=== PATIENT | male | born 1990 | race Caucasian/White ===

== ENCOUNTER 2017-12-15 04:45 | Inpatient (IN) | payer OTHER ==
[~2017-12-15] VITALS: Ht 177.8 cm; Wt 175.7 kg
[2017-12-15 05:30] LABS: BASO % 0.7 % (0.0-2.0); EOS # 0.2 (0.0-0.7); EOS % 3.7 % (0-4.0); GRAN # 2.3 (1.4-6.5); GRAN % 39.1 % (42.2-75.2); HEMOGLOBIN 15.1 g/dl (13.5-18.0); LYMPH # 2.7 (1.2-3.4); LYMPH % 46.1 % (20.0-51.0); MEAN CELL VOLUME 84 fl (80.0-100.0); MEAN CORPUSCULAR HEMOGLOBIN 30 pg (27.0-31.0); MEAN CORPUSCULAR HGB CONC 36 g/dl (33.0-37.0); MEAN PLATELET VOLUME 10.1 fl (7.4-10.4); MONO # 0.6 (0.1-0.6); MONO % 10.2 % (1.7-9.3); PLATELET COUNT 191 K/mm3 (130-400); RED BLOOD COUNT 5.02 M/mm3 (4.20-5.60); REDCELL DISTRIBUTION WIDTH-CV 12.8 % (11.5-14.5)
[2017-12-15 05:35] LABS: PROTHROMBIN TIME 10.9 SECONDS (9.7-12.8)
[2017-12-15 05:39] LABS: ALBUMIN 3.9 gm/dL (3.5-5.0); BILIRUBIN,TOTAL 0.5 mg/dL (0.0-1.0); CALCIUM 9.3 mg/dL (8.4-10.2); CREATININE, serum 0.9 mg/dL (0.66-1.25); POTASSIUM 3.6 mmol/L (3.4-5.0); TOTAL PROTEIN 7.5 gm/dL (6.4-8.2)
[2017-12-15 05:52] LABS: TROPONIN-I 0.049 ng/mL (0.000-0.034)
[2017-12-15] MEDS ORDERED: ZESTRIL40 MG PO (06:43)
[2017-12-15] MEDS ORDERED: ZYRTEC ALLERGY10 MG PO (06:44)
[2017-12-15] MEDS ORDERED: PEPTO BISMOL262 MG PO (06:44)
[2017-12-15 07:49] LABS: COLLECTION METHOD CLEAN CATCH
[2017-12-15 07:59] LABS: PH 6 (5-8); SQUAMOUS EPITHELIAL None Seen /hpf; URINE APPEARANCE Clear; URINE BACTERIA None Seen /hpf; URINE BILIRUBIN Negative (NEGATIVE); URINE BLOOD Negative (NEGATIVE); URINE COLOR Straw; URINE GLUCOSE Negative (NEGATIVE); URINE KETONE Negative (NEGATIVE); URINE LEUKOCYTE ESTERASE Negative (NEGATIVE); URINE NITRATE Negative (NEGATIVE); URINE PROTEIN(semi-quant) Negative (NEGATIVE); URINE RBC 0-2 /hpf; URINE UROBILINOGEN Negative (NEGATIVE)
[2017-12-15 10:21] VITALS: BP 146/80; PULSE 104; TEMP 98
[2017-12-15 11:06] VITALS: BP 146/80; PULSE 104; TEMP 98
[2017-12-15] MEDS ORDERED: PRILOTC PO (11:23)
[2017-12-15 16:52] VITALS: BP 142/90; PULSE 73; TEMP 98.2
[2017-12-15 19:46] VITALS: BP 146/74; PULSE 65; TEMP 98.3
[2017-12-16] VITALS (13 sets, daily range): BP systolic 115–148; BP diastolic 63–90; PULSE 52–79; TEMP 97.7–98.8
[2017-12-16 09:56] LABS: BASO % 0.7 % (0.0-2.0); EOS # 0.2 (0.0-0.7); EOS % 3.3 % (0-4.0); GRAN # 1.9 (1.4-6.5); GRAN % 42.3 % (42.2-75.2); HEMATOCRIT 41.6 % (42.0-52.0); HEMOGLOBIN 14.8 g/dl (13.5-18.0); LYMPH % 44.6 % (20.0-51.0); MEAN CELL VOLUME 86 fl (80.0-100.0); MEAN CORPUSCULAR HEMOGLOBIN 31 pg (27.0-31.0); MEAN CORPUSCULAR HGB CONC 36 g/dl (33.0-37.0); MEAN PLATELET VOLUME 10.3 fl (7.4-10.4); MONO # 0.4 (0.1-0.6); MONO % 9.1 % (1.7-9.3); PLATELET COUNT 193 K/mm3 (130-400); RED BLOOD COUNT 4.85 M/mm3 (4.20-5.60); REDCELL DISTRIBUTION WIDTH-CV 13.1 % (11.5-14.5)
[2017-12-16 10:37] LABS: THYROID STIMULATING HORMONE 1.89 uIU/mL (0.465-4.680)
[2017-12-17 00:04] VITALS: BP 146/74; PULSE 62; TEMP 97.8
[2017-12-17 03:19] VITALS: BP 143/75; PULSE 59; TEMP 97.7
[2017-12-17 08:16] VITALS: BP 145/78; PULSE 66; TEMP 97.4
[2017-12-17 08:18] LABS: BASO % 0.4 % (0.0-2.0); EOS # 0.1 (0.0-0.7); EOS % 2.4 % (0-4.0); GRAN # 2.9 (1.4-6.5); HEMATOCRIT 39.8 % (42.0-52.0); LYMPH # 1.8 (1.2-3.4); LYMPH % 33.3 % (20.0-51.0); MEAN CELL VOLUME 85 fl (80.0-100.0); MEAN CORPUSCULAR HEMOGLOBIN 30 pg (27.0-31.0); MEAN CORPUSCULAR HGB CONC 35 g/dl (33.0-37.0); MEAN PLATELET VOLUME 10.1 fl (7.4-10.4); MONO # 0.5 (0.1-0.6); MONO % 9.7 % (1.7-9.3); PLATELET COUNT 178 K/mm3 (130-400); RED BLOOD COUNT 4.69 M/mm3 (4.20-5.60)
[2017-12-17 08:21] LABS: CREATININE, serum 0.81 mg/dL (0.66-1.25)
[2017-12-17] MEDS ORDERED: ASPIRIN E.C. 8181 MG PO (09:07)
[2017-12-17] MEDS ORDERED: LIPITOR 10MG10 MG PO (10:52)
[2017-12-17] MEDS ORDERED: TOPROL XL 25MG25 MG PO (10:57)
== END 2017-12-17 11:30 | disposition home or self-care (01) | DRG 552 ==
LOC: COL.ER 04:45 → MEDICAL 07:21
PROVIDERS: Emergency Medicine; Hospitalist; Internal Medicine Gastroenterology
PROC: 0DJ08ZZ Inspection of Upper Intestinal Tract, Via Natural or Artificial Opening Endoscopic (ICD-10-PCS; principal; 2017-12-15 16:00)
PROC: B2111ZZ Fluoroscopy of Multiple Coronary Arteries using Low Osmolar Contrast (ICD-10-PCS; 2017-12-16)
DX: M54.89 Other dorsalgia (principal); Z68.43 Body mass index [BMI] 50.0-59.9, adult; R10.13 Epigastric pain; I10 Essential (primary) hypertension; E66.01 Morbid (severe) obesity due to excess calories; K21.9 Gastro-esophageal reflux disease without esophagitis; K75.81 Nonalcoholic steatohepatitis (NASH); K44.9 Diaphragmatic hernia without obstruction or gangrene
CPT/HCPCS: 99223-AI; 99232-AI; C1760; C1769; C1894; J1170; J1644; J2250; J2765; J3010; J7030; Q9967